=== PATIENT | male | born 1990 | race Caucasian/White ===

== ENCOUNTER 2017-05-23 02:45 | Emergency (ER) | payer SELFPAY ==
[~2017-05-23] VITALS: Ht 177.8 cm; Wt 110.0 kg
[2017-05-23 02:49] VITALS: BP 120/72; PULSE 84; RESP 16; TEMP 98.6; O2SAT 96
[2017-05-23] MEDS ORDERED: SODIUM CHLOR 0.9% 1000 ML INJ 1,000 ML IV SCH (02:53)
--- NOTE | 2017-05-23 02:58 | PD ---
HPI Chief Complaint: Alcohol/Drug Intoxication Time Seen by Provider: 02:53 Travel History International Travel<30 days: No Contact w/Intl Traveler<30days: No Traveled to known affect area: No History of Present Illness HPI 27-year-old male presents to the emergency department by EMS transport as a police Mason act after reportedly being found on the ground with a large amount of emesis. Patient here is very somnolent but with deep tactile stimuli answers yes no questions stating that he was drinking alcohol denies other substance ingestion and denies any chronic medical concerns. COUNTS INCLUDE 234 BEDS AT THE [facility] Past Medical History Narrative Medical Denies past medical history; alcohol use; nursing notes reviewed Social History Tobacco Use: No Allergies-Medications (Allergen,Severity, Reaction): Coded Allergies: UNOBTAINABLE (Unverified , 05/23/17) INTOXICATED Reported Meds & Prescriptions Reported Meds & Active Scripts Active Active Prescriptions or Reported Medications Unobtainable Review of Systems ROS Limitations: Intoxication, Poor Historian Except as stated in HPI: all other systems reviewed are Neg Physical Exam Narrative GENERAL: Well-developed well-nourished male in no acute distress no respiratory distress very somnolent response to deep painful stimuli and answers simple questions with yes no; clothing covered in emesis SKIN: Warm and dry. HEAD: Atraumatic. Normocephalic. No scalp soft tissue swelling tenderness bony step-off abrasion or laceration EYES: Pupils equal and round. Extraocular muscles intact. No scleral icterus. No injection or drainage. ENT: No nasal bleeding or discharge. Mucous membranes pink and moist. NECK: Trachea midline. No JVD. No midline tenderness to direct palpation or bony step-off of the posterior cervical spine. CARDIOVASCULAR: Regular rate and rhythm. RESPIRATORY: No accessory muscle use. Clear to auscultation. Breath sounds equal bilaterally. GASTROINTESTINAL: Abdomen soft, non-tender, nondistended. Hepatic and splenic margins not palpable. MUSCULOSKELETAL: Extremities without clubbing, cyanosis, or edema. No obvious deformities. NEUROLOGICAL: Somnolent. No obvious cranial nerve deficits. Motor grossly within normal limits. Five out of 5 muscle strength in the arms and legs. Normal speech. PSYCHIATRIC: Appropriate mood and affect; insight and judgment normal. Data Data Last Documented VS Vital Signs Date Time Temp Pulse Resp B/P Pulse Ox O2 Delivery O2 Flow Rate FiO2 05/23/17 02:49 98.6 84 16 120/72 96 Orders Electrocardiogram (05/23/17 02:53) Basic Metabolic Panel (Bmp) (05/23/17 02:53) Complete Blood Count With Diff (05/23/17 02:53) Chest, Single Ap (05/23/17 02:53) Ct Brain W/O Iv Contrast(Rout) (05/23/17 02:53) Blood Glucose (05/23/17 02:53) Ecg Monitoring (05/23/17 02:53) Iv Access Insert/Monitor (05/23/17 02:53) Oximetry (05/23/17 02:53) Sodium Chloride 0.9% Flush (Ns Flush) (05/23/17 03:00) Sodium Chlor 0.9% 1000 Ml Inj (Ns 1000 M (05/23/17 02:53) Drug Screen, Random Urine (05/23/17 02:53) Alcohol (Ethanol) (05/23/17 02:53) Tylenol (Acetaminophen) (05/23/17 02:53) Salicylates (Aspirin) (05/23/17 02:53) Ondansetron Inj (Zofran Inj) (05/23/17 03:00) Ct Cerv Spine W/O Contrast (05/23/17 ) Sodium Chlor 0.9% 1000 Ml Inj (Ns 1000 M (05/23/17 04:45) Labs Laboratory Tests Test 05/23/17 05/23/17 03:30 04:45 White Blood Count 7.5 TH/MM3 Red Blood Count 5.05 MIL/MM3 Hemoglobin 14.6 GM/DL Hematocrit 41.8 % Mean Corpuscular Volume 82.8 FL Mean Corpuscular Hemoglobin 28.9 PG Mean Corpuscular Hemoglobin 34.9 % Concent Red Cell Distribution Width 13.6 % Platelet Count 280 TH/MM3 Mean Platelet Volume 6.5 FL Neutrophils (%) (Auto) 51.8 % Lymphocytes (%) (Auto) 34.4 % Monocytes (%) (Auto) 10.5 % Eosinophils (%) (Auto) 2.0 % Basophils (%) (Auto) 1.3 % Neutrophils # (Auto) 3.9 TH/MM3 Lymphocytes # (Auto) 2.6 TH/MM3 Monocytes # (Auto) 0.8 TH/MM3 Eosinophils # (Auto) 0.2 TH/MM3 Basophils # (Auto) 0.1 TH/MM3 CBC Comment AUTO DIFF Differential Comment AUTO DIFF CONFIRMED Sodium Level 142 MEQ/L Potassium Level 4.0 MEQ/L Chloride Level 106 MEQ/L Carbon Dioxide Level 24.6 MEQ/L Anion Gap 11 MEQ/L Blood Urea Nitrogen 14 MG/DL Creatinine 1.04 MG/DL Estimat Glomerular Filtration 86 ML/MIN Rate Random Glucose 99 MG/DL Calcium Level 8.5 MG/DL Salicylates Level 1.9 MG/DL Acetaminophen Level LESS THAN 2.0 MCG/ML Ethyl Alcohol Level 174 MG/DL Urine Opiates Screen NEG Urine Barbiturates Screen NEG Urine Amphetamines Screen NEG Urine Benzodiazepines Screen NEG Urine Cocaine Screen NEG Urine Cannabinoids Screen POS MDM Medical Decision Making Medical Screen Exam Complete: Yes Emergency Medical Condition: Yes Medical Record Reviewed: Yes Interpretation(s) CT cervical spine w/o : FINDINGS: The alignment is normal. There is no evidence of cervical spine fracture. No bony canal or foraminal stenosis is identified. There is no evidence of paraspinal hematoma. CONCLUSION: No acute bony injury in the cervical spine. Craig Chavez MD on May 23, 2017 at 4:19 Board Certified Radiologist. This report was verified electronically. CT brain w/o: CONCLUSION: Normal examination. Craig Chavez MD on May 23, 2017 at 4:12 Board Certified Radiologist. This report was verified electronically. cxr: FINDINGS: The film is limited by positioning and poor respiratory effort. Grossly, no focal infiltrate or effusion is suspected. Cardiac contours are satisfactory. CONCLUSION: Suboptimal film without definite focal findings Craig Chavez MD on May 23, 2017 at 3:18 Board Certified Radiologist. This report was verified electronically. Acetaminophen and salicylate levels: Not elevated Serum alcohol 174, elevated Vital Signs Date Time Temp Pulse Resp B/P Pulse Ox O2 Delivery O2 Flow Rate FiO2 05/23/17 02:49 98.6 84 16 120/72 96 CBC & BMP Diagram 05/23/17 03:30 Urine drug screen: Cannabinoids Differential Diagnosis Minor CHI, AMS, ICH, cervical spine sprain strain fracture, aspiration, on-call intoxication, polysubstance ingestion Narrative Course Patient placed on monitor and storage bin tender imaging study and lab work ordered Patient remains arousable only to tactile and painful stimuli CT brain noncontrast reveals no acute injury or cranial pathology and CT cervical spine reveals no acute abnormality It is now 4:30 AM Diagnosis Primary Impression: Alcohol intoxication Qualified Code: F10.920 - Alcohol intoxication, uncomplicated Referrals: Primary Care Physician call for appointment Patient Instructions: General Instructions Additional Instructions: Increase fluid hydration with NON-alcoholic beverages Follow-up with primary care provider Return to the emergency department for any concerns or change in condition Take acetaminophen/Tylenol as needed for fever 100.4F or greater Scripts Unable to Obtain Active Prescriptions or Reported Meds Kimberley Bryant MD May 23, 2017 02:58
[2017-05-23] MEDS ORDERED: ONDANSETRON HCL 4 MG/2 ML VIAL IV PUSH ONE (03:00)
[2017-05-23] MEDS ORDERED: SODIUM CHLORIDE 0.9% FLUSH 5 ML FLUSH IV FLUSH PRN (03:00)
--- NOTE | 2017-05-23 03:21 | RADRPT ---
EXAM DATE/TIME: 05/23/2017 02:55 [facility] COMPARISON: No previous studies available for comparison. INDICATIONS : Syncope. ETOH. Possible aspiration. MEDICAL HISTORY : None. SURGICAL HISTORY : None. ENCOUNTER: Initial ACUITY: 1 day PAIN SCORE: Non-responsive. LOCATION: Bilateral chest FINDINGS: The film is limited by positioning and poor respiratory effort. Grossly, no focal infiltrate or effus ion is suspected. Cardiac contours are satisfactory. CONCLUSION: Suboptimal film without definite focal findings Craig Chavez MD on May 23, 2017 at 3:18 Board Certified Radiologist. This report was verified electronically.
[2017-05-23 03:49] LABS: AUTOMATED NEUTROPHIL # 3.9 TH/MM3 (1.8-7.7); BASOPHIL # 0.1 TH/MM3 (0-0.2); BASOPHIL % 1.3 % (0.0-2.0); EOSINOPHIL # 0.2 TH/MM3 (0-0.4); HEMATOCRIT 41.8 % (39.0-51.0); LYMPH % 34.4 % (9.0-44.0); LYMPHOCYTE # 2.6 TH/MM3 (1.0-4.8); MEAN CELL VOLUME 82.8 FL (80.0-100.0); MEAN CORPUSCULAR HEMOGLOBIN 28.9 PG (27.0-34.0); MEAN CORPUSCULAR HGB CONC 34.9 % (32.0-36.0); MONO % 10.5 % (0.0-8.0); NEUT % 51.8 % (16.0-70.0); PLATELET COUNT 280 TH/MM3 (150-450); RED BLOOD COUNT 5.05 MIL/MM3 (4.50-5.90); RED CELL DISTRIBUTION WIDTH 13.6 % (11.6-17.2); WHITE BLOOD COUNT 7.5 TH/MM3 (4.0-11.0)
[2017-05-23 03:50] LABS: HEMO FLAGS AUTO DIFF
--- NOTE | 2017-05-23 04:14 | RADRPT ---
EXAM DATE/TIME: 05/23/2017 04:04 [facility] COMPARISON: No previous studies available for comparison. INDICATIONS : Found unresponsive. ETOH. RADIATION DOSE: 58.26 CTDIvol (mGy) MEDICAL HISTORY : Non-responsive. SURGICAL HISTORY : Non-responsive. ENCOUNTER: Initial ACUITY: 1 day PAIN SCALE: Non-responsive LOCATION: cranial TECHNIQUE: Multiple contiguous axial images were obtained of the head. Using automated exposure control and adj ustment of the mA and/or kV according to patient size, radiation dose was kept as low as reasonably a chievable to obtain optimal diagnostic quality images. DICOM format image data is available electro nically for review and comparison. FINDINGS: CEREBRUM: The ventricles are normal for age. No evidence of midline shift, mass lesion, hemorrhage or acute in farction. No extra-axial fluid collections are seen. POSTERIOR FOSSA: The cerebellum and brainstem are intact. The 4th ventricle is midline. The cerebellopontine angle i s unremarkable. EXTRACRANIAL: The visualized portion of the orbits is intact. SKULL: The calvaria is intact. No evidence of skull fracture. CONCLUSION: Normal examination. Craig Chavez MD on May 23, 2017 at 4:12 Board Certified Radiologist. This report was verified electronically.
[2017-05-23 04:17] LABS: ANION GAP 11 MEQ/L (5-15); BICARBONATE 24.6 MEQ/L (21.0-32.0); BLOOD UREA NITROGEN 14 MG/DL (7-18); CHLORIDE 106 MEQ/L (98-107); GLOMERULAR FILTRATION RATE 86 ML/MIN (>89); SODIUM (NA) 142 MEQ/L (136-145)
[2017-05-23 04:18] LABS: ACETAMINOPHEN LESS THAN 2.0 MCG/ML (10.0-30.0)
--- NOTE | 2017-05-23 04:22 | RADRPT ---
EXAM DATE/TIME: 05/23/2017 04:04 [facility] COMPARISON: No previous studies available for comparison. INDICATIONS : Found unresponsive. ETOH. RADIATION DOSE: 25.83 CTDIvol (mGy) MEDICAL HISTORY : Non-responsive. SURGICAL HISTORY : Non-responsive. ENCOUNTER: Initial ACUITY: 1 day PAIN SCALE: Non-responsive LOCATION: neck TECHNIQUE: Volumetric scanning of the cervical spine was performed. Multiplanar reconstructions in the sagittal, coronal and oblique axial planes were performed. Using automated exposure control and adjustment o f the mA and/or kV according to patient size, radiation dose was kept as low as reasonably achievable to obtain optimal diagnostic quality images. DICOM format image data is available electronically f or review and comparison. FINDINGS: The alignment is normal. There is no evidence of cervical spine fracture. No bony canal or foraminal stenosis is identified. There is no evidence of paraspinal hematoma. CONCLUSION: No acute bony injury in the cervical spine. Craig Chavez MD on May 23, 2017 at 4:19 Board Certified Radiologist. This report was verified electronically.
[2017-05-23] MEDS ORDERED: SODIUM CHLOR 0.9% 1000 ML INJ 1,000 ML IV ONE (04:45)
[2017-05-23 05:03] LABS: SCAN/DIFF AUTO DIFF CONFIRMED
[2017-05-23 05:10] LABS: AMPHETAMINE, URINE NEG (NEG); BARBITURATES, URINE NEG (NEG); COCAINE, URINE NEG (NEG)
[2017-05-23 08:00] VITALS: BP 126/78; PULSE 78; RESP 15; O2SAT 100
--- NOTE | 2017-05-24 13:55 | EKG ---
Date Performed: 05/23/2017 Time Performed: 03:26:39 PTAGE: 27 years EKG: Sinus rhythm ST elevation noted in leads V4,V5, and V6 - suspect due to baseline artifact; however, cannot comple tely rule out an injury pattern. Clinical correlation recommended. NORMAL ECG NO PREVIOUS TRACING DOCTOR: Jaime Altamirano Interpretating Date/Time 05/24/2017 13:53:32
== END 2017-05-23 08:48 | disposition home or self-care (01) ==
LOC: NEPC 02:45
DX: F10.920 Alcohol use, unspecified with intoxication, uncomplicated (principal); R94.31 Abnormal electrocardiogram [ECG] [EKG]
CPT/HCPCS: 70450; 71010; 72125; 80048; 80307; 85025; 93005; 96361; 96374; 99285; J2405; J7030